=== PATIENT | female | born 2000 | race Caucasian/White ===

== ENCOUNTER 2020-08-01 16:41 | Emergency (ER) | payer OTHER ==
[~2020-08-01] VITALS: Ht 175.3 cm; Wt 131.8 kg
[2020-08-01] MEDS ORDERED: AMOX/K CLAV875 M1 PO ×2 (17:00→17:01)
[2020-08-01 17:05] VITALS: BP 134/72
== END 2020-08-01 17:05 | disposition home or self-care (01) | DRG 605 ==
LOC: ED 16:41
DX: S51.851A Open bite of right forearm, initial encounter (principal); W50.3XXA Accidental bite by another person, initial encounter; Y92.89 Other specified places as the place of occurrence of the external cause; Y99.0 Civilian activity done for income or pay